=== PATIENT | male | born 1930 | race Caucasian/White ===

== ENCOUNTER 2019-07-10 13:55 | Inpatient (IN) | payer OTHER, MEDICARE ==
[~2019-07-10] VITALS: Ht 177.8 cm; Wt 90.7 kg
[2019-07-10 15:08] LABS: Base Excess Venous -5.1 mmol/L; Bicarbonate Venous 21.1 mmol/L (24.0-30.0); PCO2 Venous 28.2 mmHg (38-42); PO2 Venous 114 mmHg (38-42); pH Blood Venous 7.44 (7.34-7.37)
[2019-07-10 15:13] LABS: BASOPHILS ABSOLUTE AUTO 0.02 K/mm3 (0.00-0.23); BASOPHILS PERCENT AUTO 0 % (0-2); EOSINOPHILS ABSOLUTE AUTO 0.01 K/mm3 (0.00-0.68); EOSINOPHILS PERCENT AUTO 0 % (0-6); Hematocrit 34.4 % (37.0-53.0); Hemoglobin 11.4 g/dL (13.5-17.5); IMMATURE GRAN ABSOLUTE AUTO 0.06 K/mm3 (0.00-0.10); IMMATURE GRAN PERCENT AUTO 0 % (0-1); LYMPHOCYTES ABSOLUTE AUTO 0.82 K/mm3 (0.84-5.20); LYMPHOCYTES PERCENT AUTO 6 % (21-46); MONOCYTES ABSOLUTE AUTO 1.27 K/mm3 (0.16-1.47); MONOCYTES PERCENT AUTO 9 % (4-13); Mean Corpuscular HGB 28.9 pg (26.0-34.0); Mean Corpuscular HGB Conc 33.1 g/dL (31.5-36.5); Mean Corpuscular Volume 87 fL (80-100); Mean Platelet Volume 9.5 fL (9.1-12.4); NEUTROPHILS ABSOLUTE AUTO 12.73 K/mm3 (1.96-9.15); NEUTROPHILS PERCENT AUTO 85 % (41-73); Platelet Count 243 K/mm3 (150-400); RDW Coefficient Variation 15.4 % (11.7-14.2); RDW Standard Deviation 48.8 fL (35.1-46.3); Red Blood Cell Count 3.95 M/mm3 (4.30-5.90); White Blood Cell Count 14.91 K/mm3 (4.00-11.30)
[2019-07-10] MEDS ORDERED: Aspirin EC81 MG PO (15:23)
[2019-07-10 15:28] LABS: Alanine Aminotransfer (ALT/SGP 35 U/L (12-78); Albumin, Blood 3.8 g/dL (3.4-5.0); Albumin/Globulin Ratio 1.1 (0.8-1.8); Alk Phos 66 U/L (50-136); Anion Gap 11 mmol/L (6-16); Aspartate Aminotrans (AST/SGOT 50 U/L (12-37); Bilirubin, Total 0.7 mg/dL (0.1-1.0); Blood Urea Nitrogen 24 mg/dL (8-24); Bun/Creatinine Ratio 22.9 (12.0-20.0); CO2, Blood 20 mmol/L (21-32); Calcium, Blood 8.8 mg/dL (8.5-10.1); Chloride, Blood 97 mmol/L (98-108); Creatinine, Blood 1.05 mg/dL (0.60-1.20); Globulin, Blood 3.6 g/dL (2.2-4.0); Glomerular Filtration Rate >60 (60-); Glucose, Blood 160 mg/dL (70-99); Potassium, Blood 3.9 mmol/L (3.5-5.5); Sodium, Blood 128 mmol/L (136-145); Total Protein, Blood 7.4 g/dL (6.4-8.2)
[2019-07-10] MEDS ORDERED: ATOR40TA PO (17:08)
[2019-07-10] MEDS ORDERED: CLOPIDOGREL75 MG PO (17:10)
[2019-07-10] MEDS ORDERED: MAGNESIUM OXID500 MG PO (17:10)
[2019-07-10] MEDS ORDERED: GUAIFENESIN-DM 15 ML PO (17:11)
[2019-07-10] MEDS ORDERED: METO25ER PO (17:12)
[2019-07-10] MEDS ORDERED: NITR.4SL SL (17:12)
[2019-07-10] MEDS ORDERED: THEO400ER PO (17:13)
[2019-07-10 17:42] LABS: PCO2 Arterial 29.5 mmHg (35-45); PO2 Arterial 88.1 mmHg (80-100); pH Blood Arterial 7.41 (7.35-7.45)
--- NOTE | 2019-07-10 18:50 | NUR ---
PT NEW ADMIT FROM ED THIS SHIFT. HE IS ALERT, TALKING TO STAFF, DAUGHTER AT BEDSIDE. STATES PT IS CONFUSED, BED ALARM IN PLACE. TELE PLACED AFTER SHAVING, SINUS TACH LOW 100S NOTED. TACYPNEA AND WHEEZING NOTED. CALL LIGHT IN REACH
--- NOTE | 2019-07-10 19:00 | NUR ---
PT ADMITTED FROM ED. RECEIVED REPORT FROM JOANNE DWYER. ASSUMED CARE OF PT. PT SITTING UP IN BED, NO ACUTE S/S DISTRESS NOTED, VISIBLY CONFUSED. DAUGHTER AT BEDSIDE. CALL LIGHT AND POSSESSIONS IN REACH, BED ALARM ON, SIDE RAILS UP X3. WILL CONTINUE TO MONITOR.
[2019-07-10 19:07] LABS: Adenovirus Not Detected (NOT DETECT); Bordetella pertussis Not Detected (NOT DETECT); Chlamydophila pneumoniae Not Detected (NOT DETECT); Coronavirus 229E Not Detected (NOT DETECT); Coronavirus HKU1 Not Detected (NOT DETECT); Coronavirus NL63 Not Detected (NOT DETECT); Coronavirus OC43 Not Detected (NOT DETECT); Human Metapneumovirus Not Detected (NOT DETECT); Human Rhinovirus/Enterovirus Not Detected (NOT DETECT); Influenza A Not Detected (NOT DETECT); Influenza A/2009-H1 Not Detected (NOT DETECT); Influenza A/H1 Not Detected (NOT DETECT); Influenza A/H3 Not Detected (NOT DETECT); Influenza B Not Detected (NOT DETECT); Mycoplasma pneumoniae Not Detected (NOT DETECT); Parainfluenza Virus 1 Not Detected (NOT DETECT); Parainfluenza Virus 2 Not Detected (NOT DETECT); Parainfluenza Virus 3 Not Detected (NOT DETECT); Parainfluenza Virus 4 Not Detected (NOT DETECT); Respiratory Syncytial Virus Detected (NOT DETECT)
--- NOTE | 2019-07-10 19:49 | NUR ---
SPOKE TO INDIGO TATE REGARDING PT'S LACTIC ACID LEVEL. ORDERS RECEIVED.
[2019-07-10 22:16] LABS: Creatine Kinase MB 30.5 ng/mL (0.0-3.6)
[2019-07-10 22:18] LABS: Troponin I 1.08 ng/mL (0.000-0.040)
[2019-07-10 22:19] LABS: Creatine Kinase MB Index 1.8 (0.0-4.0)
--- NOTE | 2019-07-10 22:40 | NUR ---
SPOKE TO INDIGO TATE REGARDING PT'S INCREASING LACTIC ACID AND ELEVATED TROPONIN. IN TO SEE PT AT THIS TIME. NO NEW ORDERS RECEIVED.
[2019-07-11 03:41] LABS: BASOPHILS PERCENT AUTO 0 % (0-2); EOSINOPHILS PERCENT AUTO 0 % (0-6); Hematocrit 30.3 % (37.0-53.0); Hemoglobin 10.2 g/dL (13.5-17.5); IMMATURE GRAN ABSOLUTE AUTO 0.06 K/mm3 (0.00-0.10); IMMATURE GRAN PERCENT AUTO 1 % (0-1); LYMPHOCYTES ABSOLUTE AUTO 0.41 K/mm3 (0.84-5.20); LYMPHOCYTES PERCENT AUTO 4 % (21-46); MONOCYTES ABSOLUTE AUTO 0.24 K/mm3 (0.16-1.47); MONOCYTES PERCENT AUTO 2 % (4-13); Mean Corpuscular HGB 29.7 pg (26.0-34.0); Mean Corpuscular HGB Conc 33.7 g/dL (31.5-36.5); Mean Corpuscular Volume 88 fL (80-100); Mean Platelet Volume 8.9 fL (9.1-12.4); NEUTROPHILS PERCENT AUTO 93 % (41-73); Platelet Count 168 K/mm3 (150-400); RDW Coefficient Variation 15.8 % (11.7-14.2); RDW Standard Deviation 50.4 fL (35.1-46.3); Red Blood Cell Count 3.44 M/mm3 (4.30-5.90); White Blood Cell Count 10.11 K/mm3 (4.00-11.30)
[2019-07-11 04:05] LABS: Alanine Aminotransfer (ALT/SGP 34 U/L (12-78); Albumin, Blood 3.3 g/dL (3.4-5.0); Alk Phos 60 U/L (50-136); Anion Gap 9 mmol/L (6-16); Aspartate Aminotrans (AST/SGOT 54 U/L (12-37); Bilirubin, Total 0.4 mg/dL (0.1-1.0); Blood Urea Nitrogen 23 mg/dL (8-24); Bun/Creatinine Ratio 20.5 (12.0-20.0); CO2, Blood 21 mmol/L (21-32); Calcium, Blood 8.2 mg/dL (8.5-10.1); Chloride, Blood 101 mmol/L (98-108); Creatinine, Blood 1.12 mg/dL (0.60-1.20); Globulin, Blood 3.3 g/dL (2.2-4.0); Glomerular Filtration Rate >60 (60-); Glucose, Blood 215 mg/dL (70-99); Potassium, Blood 4.4 mmol/L (3.5-5.5); Sodium, Blood 131 mmol/L (136-145); Total Protein, Blood 6.6 g/dL (6.4-8.2)
--- NOTE | 2019-07-11 05:03 | NUR ---
SPOKE TO DR. WREN REGARDING PT'S ELEVATED TROPONIN. STATED HE WILL REVIEW CHART AND ENTER ORDERS NEEDED. NO ORDERS RECEIVED AT THIS TIME.
--- NOTE | 2019-07-11 07:13 | NUR ---
SHIFT SUMMARY: PT RESTING IN BED COMFORTABLY, IN NO ACUTE DISTRESS. WAS MONITORED EVERY 1-2 HOURS WITH NEEDS MET, TOLERATING CPAP WELL AT THIS TIME. O2 SATS AND BP'S STABLE T/O THE NIGHT. UPDATED DAUGHTER THIS MORNING REGARDING PT'S CONDITION, CONCERNS AND QUESTIONS WERE ADDRESSED. REMAINS AT THE BEDSIDE AT THIS TIME. REPORTED OFF TO JOANNE DWYER.
--- NOTE | 2019-07-11 07:14 | NUR ---
ASSUMED CARE: PT RESTING IN BED WITH CPAP IN PLACE. NIGHT RN AND LOAD MANAGER AT BEDSIDE CHANGING ATTENDS. DAUGHTER TO BRING IN COPY OF ADVANCED DIRECTIVE.
--- NOTE | 2019-07-11 19:15 | NUR ---
RECEIVED REPORT FROM JOANNE DWYER. ASSUMED CARE OF PT. SITTING UP IN BED COMFORTABLY AT THIS TIME, IN NO ACUTE DISTRESS. DAUGHTER AT THE BEDSIDE. DENIES ANY NEEDS AT THIS TIME. CALL LIGHT AND POSSESSIONS IN REACH, BED IN LOW AND LOCKED POSITION, BED ALARM ACTIVATED. WILL CONTINUE TO MONITOR.
--- NOTE | 2019-07-11 19:27 | NUR ---
SHIFT SUMMARY: PT RESTING IN BED, CONFUSED AT TIMES AND HARD OF HEARING. DAUGHTER AT BEDSIDE. PLAN IS FOR PCU FOR NEXT FEW DAYS TO MONITOR DUE TO WHEEZING AND TACHYPNEA. SINUS TACH IN LOW 100S. NO FURTHER NEEDS OR CONCERNS.
--- NOTE | 2019-07-11 21:00 | NUR ---
PT STANDING AT THE BEDSIDE, VISIBLY AGITATED, ALARM SOUNDING. RN AT THE BEDSIDE, REDIRECTED PT BACK TO BED WITH ASSISTANCE OF 3. REPOSITIONED FOR COMFORT, CALL LIGHT AND POSSESSIONS IN REACH, BED ALARM ACTIVATED. WILL CONTINUE TO MONITOR.
[2019-07-12 04:45] LABS: BASOPHILS ABSOLUTE AUTO 0.01 K/mm3 (0.00-0.23); BASOPHILS PERCENT AUTO 0 % (0-2); EOSINOPHILS PERCENT AUTO 0 % (0-6); Hematocrit 31.9 % (37.0-53.0); Hemoglobin 10.4 g/dL (13.5-17.5); IMMATURE GRAN ABSOLUTE AUTO 0.12 K/mm3 (0.00-0.10); IMMATURE GRAN PERCENT AUTO 1 % (0-1); LYMPHOCYTES ABSOLUTE AUTO 0.43 K/mm3 (0.84-5.20); LYMPHOCYTES PERCENT AUTO 3 % (21-46); MONOCYTES ABSOLUTE AUTO 0.55 K/mm3 (0.16-1.47); MONOCYTES PERCENT AUTO 4 % (4-13); Mean Corpuscular HGB 29.1 pg (26.0-34.0); Mean Corpuscular HGB Conc 32.6 g/dL (31.5-36.5); Mean Corpuscular Volume 89 fL (80-100); Mean Platelet Volume 9.1 fL (9.1-12.4); NEUTROPHILS ABSOLUTE AUTO 12.55 K/mm3 (1.96-9.15); NEUTROPHILS PERCENT AUTO 92 % (41-73); Platelet Count 222 K/mm3 (150-400); RDW Coefficient Variation 16.2 % (11.7-14.2); RDW Standard Deviation 53.6 fL (35.1-46.3); Red Blood Cell Count 3.57 M/mm3 (4.30-5.90); White Blood Cell Count 13.66 K/mm3 (4.00-11.30)
[2019-07-12 04:59] LABS: Bun/Creatinine Ratio 24.2 (12.0-20.0); Calcium, Blood 8.7 mg/dL (8.5-10.1); Creatinine, Blood 1.24 mg/dL (0.60-1.20); Potassium, Blood 4.7 mmol/L (3.5-5.5)
--- NOTE | 2019-07-12 07:00 | NUR ---
recvd bedside report from previous shift JOANNE Jimenez/Joseph. pt sitting up in chair with tab alarm on, appears constantly fidgety (moving legs, turning pages on book, playing with crayons, activity apron), daughter in room with pt. Pt has not slept for operation shift supervisor, has been OOB in room, moves quickly.
--- NOTE | 2019-07-12 07:15 | NUR ---
PT SITTING IN RECLINER, IN NO ACUTE DISTRESS. WAS MONITORED EVERY 1-2 HOURS WITH NEEDS MET, DENIES ANY NEEDS AT THIS TIME. CALL LIGHT AND POSSESSIONS IN REACH, BED IN LOW AND LOCKED POSITION WITH BED ALARM ACTIVATED, DAUGHTER AT THE BEDSIDE.
--- NOTE | 2019-07-12 07:20 | NUR ---
PT SITTING IN RECLINER, IN NO ACUTE DISTRESS. WAS MONITORED EVERY 1-2 HOURS WITH NEEDS MET. DENIES ANY NEEDS AT THIS TIME. TAB ALARM IN PLACE, CHAIR LOCKED. DAUGHTER AT THE BEDSIDE, UPDATED ON PT CONDITION T/O NIGHT, QUESTIONS AND CONCERNS ADDRESSED. PT CALL LIGHT AND POSSESSIONS IN REACH.
--- NOTE | 2019-07-12 08:10 | NUR ---
returned call to pt's son, provided pt's son with update of status
--- NOTE | 2019-07-12 18:46 | NUR ---
PT HAS GRABBED AT DAUGHTER TO THE POINT SHE NEEDED TO CALL FOR HELP. PT GRABBING AT NURSING STAFF HANDS, SPITTING OUT MEDICATIONS/FOOD, CONTINUAL ATTEMPTS TO GET OOB. REPORTED TO HOSPITALIST, RECEIVED ORDERS FOR MEDICATIONS PER MAR, SOFT VEST RESTRAINT, REQUIRED 2-3 STAFF MEMBERS TO PUT VEST ON. VEST CURRENTLY IN PLACE
--- NOTE | 2019-07-12 18:47 | NUR ---
SHIFT SUMMARY: VSS, NO ACUTE CHANGES, PT'S LUNGS COURSE, NON-PRODUCTIVE COUGH CONTINUES. NO SOB WITNESSED, SPO2 >90% ON RA. PT RECEIVED RESPIRATORY TREATMENTS X 3 THIS SHIFT. MEDICATED PER JUL WITH SOME LESSINGING OF COUGH. PT WITH MULTIPLE INCONTINENT BM AND VOIDS THIS SHIFT PT TOLERATED PO INTAKE WITH NO N/V. PT INCREASINGLY AGITATED/ANXIOUS DURING AFTERNOON HOURS, MEDICATED PER JUL WITH ONLY WORSENING OF SYMPTOMS INCLUDING AGITATION AND ATTEMPTS TO GET OOB REQUIRING 2 NURSING STAFF. ATTEMPS AT REORIENTATION UNSUCCESSFUL TIME PASSES. PT DISPLAYS VISUAL AND AUDITORY HALLUCINATIONS. AT 1700, PT'S DAUGHTER YELLED OUT CALLED FOR ASSISTANCE. BUDGET CONTROLLER AND THIS RN WITNESSED PT GRABBING AT HIS DAUGHTER FORCEFULLY. PT REQUIRED 2 NURSING STAFF TO GET BACK TO BED, CONTINUALLY ATTEMPTING TO LEAVE. SPOKE WITH HOSPITALIST FOR ORDERS, ADMINISTERED PER JUL. BRIGIDA VEST IN PLACE
--- NOTE | 2019-07-12 19:26 | NUR ---
shift summary addendum: while composing shift summary on this pt, pt is able to struggle out of leonora vest, pulls at all items within reach, two nursing staff to retie and reposition pt who continues to display visual hallucinations, appears to be exhausted yet unable to sleep
--- NOTE | 2019-07-12 20:06 | NUR ---
Bedside report from Rachelle RUBIO. Pt in [facility]. Extremely cofused d/t adv alz. speech is mumbled and incoherent. VSS. Has not slept in 2 days. Spits out meds. Benedryl IV given as OT order. Assessemnt as noted. Transfer orders obtained to [facility] room 353 - report called to Ant RUBIO.
--- NOTE | 2019-07-12 21:10 | NUR ---
88 YR OLD MALE TRANSFERRED TO FLOOR FROM THE PCU WITH DX ACUTE COPD. CURRENTLY IN BRIGIDA RESTRAINT FOR SAFETY HE IS VERY UNSTEADY ON HIS FEET AND CONTINUES TO TRY TO GET OUT OF BED. SAID RESTRAINT IS UP AT 1845 TOMORROW PM. HOB ELEVATED FOR BREATHING. ON DROPLET PRECAUTIONS FOR RSV. RECEIVING IV ANTIBIOTICS SEE MAR FOR DETAILS. WAS INCONT OF FECES, CHANGED. REMAINS AGITATED. CALL LIGHT IN REACH. WILL CONT TO MONITOR.
--- NOTE | 2019-07-13 03:01 | NUR ---
PT REMAINS IN VEST BRIGIDA FOR SAFETY TO SELF - VERY UNSTEADY GAIT AND REFUSAL TO STAY IN BED. IV ANTIBIOTICS INFUSING PER JUL. HYGEINE AND CIRCULATION ASSESSMENTS CONTINUE. CARDIAC CONSULT CALLED IN - PER MD ORDERS. MED TELE SINUS RHYTHM IN THE 70'S. DROPLET PRECAUTIONS CONTINUE. CALL LIGHT IN REACH.
[2019-07-13 05:19] LABS: BASOPHILS ABSOLUTE AUTO 0.01 K/mm3 (0.00-0.23); BASOPHILS PERCENT AUTO 0 % (0-2); EOSINOPHILS PERCENT AUTO 0 % (0-6); Hematocrit 29.7 % (37.0-53.0); Hemoglobin 9.7 g/dL (13.5-17.5); IMMATURE GRAN ABSOLUTE AUTO 0.19 K/mm3 (0.00-0.10); IMMATURE GRAN PERCENT AUTO 2 % (0-1); LYMPHOCYTES ABSOLUTE AUTO 0.46 K/mm3 (0.84-5.20); LYMPHOCYTES PERCENT AUTO 4 % (21-46); MONOCYTES ABSOLUTE AUTO 0.52 K/mm3 (0.16-1.47); MONOCYTES PERCENT AUTO 5 % (4-13); Mean Corpuscular HGB 29.5 pg (26.0-34.0); Mean Corpuscular HGB Conc 32.7 g/dL (31.5-36.5); Mean Corpuscular Volume 90 fL (80-100); Mean Platelet Volume 9.3 fL (9.1-12.4); NEUTROPHILS ABSOLUTE AUTO 9.78 K/mm3 (1.96-9.15); NEUTROPHILS PERCENT AUTO 89 % (41-73); Platelet Count 204 K/mm3 (150-400); RDW Coefficient Variation 16.2 % (11.7-14.2); RDW Standard Deviation 53.4 fL (35.1-46.3); Red Blood Cell Count 3.29 M/mm3 (4.30-5.90); White Blood Cell Count 10.96 K/mm3 (4.00-11.30)
[2019-07-13 05:37] LABS: Albumin, Blood 3.1 g/dL (3.4-5.0); Anion Gap 9 mmol/L (6-16); Blood Urea Nitrogen 40 mg/dL (8-24); Bun/Creatinine Ratio 33.1 (12.0-20.0); CO2, Blood 22 mmol/L (21-32); Calcium, Blood 8.4 mg/dL (8.5-10.1); Chloride, Blood 106 mmol/L (98-108); Creatinine, Blood 1.21 mg/dL (0.60-1.20); Glomerular Filtration Rate >60 (60-); Glucose, Blood 213 mg/dL (70-99); Phosphorus, Blood 3.2 mg/dL (2.5-4.9); Potassium, Blood 4.4 mmol/L (3.5-5.5); Sodium, Blood 137 mmol/L (136-145)
--- NOTE | 2019-07-13 17:16 | NUR ---
DARK BLACK STOOL NOTIFIED DR. EVANS RE DARK BLACK SMALL STOOL. ORDERS TO HOLD HEPARIN, COLLECT OCCULT STOOL SAMPLE, AND REPEAT H+H. IF REPEAT HGB IS BELOW 9.5, HOLD ASPIRIN.
--- NOTE | 2019-07-13 17:27 | NUR ---
Wrist Restraints Pt was able to get out of his leonora, pulled out his IV, and get out of bed to close the door. COMMERCIAL INTELLIGENCE MANAGER immediately ran in for assistance and found patient walking holding onto furniture having an unsteady gait. Patient also removed tele and patches off chest. Moderately difficult to redirect. This RN received orders from Dr. Guidry for wrist restraints for patient safety. Pt does not call appropriately, is confused, and continues to be a safety issue. Bed in lowest position, call light near, belongings at bedside.
[2019-07-13 17:56] LABS: Hematocrit 29.9 % (37.0-53.0); Hemoglobin 9.8 g/dL (13.5-17.5)
--- NOTE | 2019-07-13 18:29 | NUR ---
Shift Summary A/O to self, recognizes family. This is my first day working with this patient. Pt has slurred speech at times, but is able to have clarity in speech also. Disoriented, impulsive, does not follow directions very well, continues to remove telemetry and attempts to get out of restraints. Patient has been incontinent, stool found to be black. Heparin to be held, aspirin is okay to give per Dr. Guidry d/t repeat Hgb >9.8. Lung sounds are wheezy, pt seems dyspneic when restless and on exertion. Denies pain. No other acute concerns. Family has been at bedside for most of the day. Will continue to monitor.
--- NOTE | 2019-07-14 00:34 | NUR ---
PT REMANS IN BILATERAL WRIST AND BRIGIDA VEST RESTRAINTS. REMAINS AGITATED EVEN AFTER MEDS GIVEN - INCLUDING PRNS FOR AGITATION. PULLED OUT IV, ANOTHER ONE PLACED IN LEFT FOREARM. IVF AND ANTIBIOTICS INFUSING. NON RECEPTIVE TO REDIRECTION. LIGHTS DOWN, CALM ENVIRONMENT ENCOURAGED. CALL LIGHT IN REACH. DROPLET PRECAUTIONS CONTINUE.
--- NOTE | 2019-07-14 04:07 | NUR ---
PT AGITATION CONTINUES. REMAINS IN VEST AND BILATERAL WRIST RESTRAINTS HE REFUSES TO ALLOW IV AND TELE. CONTINUES TO PULL AT LINES, PULLED OUT IV, IV SITE REPLACED. NOTIFIED OF KARLA MCGOVERN NOT WORKING, LIUDMILA SRINIVASAN'Will AND ZINA ORDERED - SEE JUL FOR DETAILS. HALDON ADMINISTERED. CURRENTLY YELLING AT THE WALL. IVF INFUSING ORDERED. CALL LIGHT IN REACH. DROPLET PRECAUTIONS CONTINUE.
[2019-07-14 05:20] LABS: Hematocrit 28.9 % (37.0-53.0); Hemoglobin 9.4 g/dL (13.5-17.5)
--- NOTE | 2019-07-14 08:21 | NUR ---
VÍCTOR PT WAS ABLE TO GET OUT OF BOTH TYPES OF RESTRAINTS THIS MORNING X 2, NOTIFIED DR. EVANS. VÍCTOR ORDERED (SEE EMAR).
[2019-07-14 10:09] LABS: Hematocrit 27.6 % (37.0-53.0)
[2019-07-14 14:22] LABS: Stool Occult Blood Guaiac 1 Pos (Neg)
--- NOTE | 2019-07-14 18:30 | NUR ---
Shift Summary A/O to self and family. Pt was agitated and pulling at tele and lines this morning, medicated for agitation x 1 with good results. Pt slept and was calm for most of the day. Towards the end, pt started to become agitated and pulled IV out attempting to get out of vest restraints. Difficult to redirect. Restraint order renewed by Dr. Guidry. Friend will stay at bedside t/o the night to help redirect patient. Call light near, camera on.
--- NOTE | 2019-07-15 04:46 | NUR ---
AWAKE AT FREQUENT INTERVALS THIS SHIFT, USUALLY WITH REQUESTS TO GO TO THE BATHROOM, BUT MOST OF SUCH TIMES WERE THAT HE HAD ALREADY GONE AND WAS INCONTENENT OF FECES (BLACK, TARRY) AND URINE. CHANGED WHEN INCONT AND CLEANED. NOTE SOME IRRITATION OF DANIELLE AREA AND LOTION CREAM APPLIED. VOICED FELT BETTER POST APPLICATION. IVF AT [facility] ANTIBIOTICS -SEE MAR FOR DETAILS. CALL LIGHT IN REACH. DROPLET PRECAUTIONS MAINTAINED.
[2019-07-15 07:56] LABS: Hematocrit 29.6 % (37.0-53.0); Hemoglobin 9.5 g/dL (13.5-17.5)
[2019-07-15 18:21] LABS: Hematocrit 29.4 % (37.0-53.0); Hemoglobin 9.6 g/dL (13.5-17.5)
--- NOTE | 2019-07-16 00:36 | NUR ---
07/15/19 2230 PT BECOMING COMBATIVE WHEN TRYING TO CLEAN STOOL AND REPOSITION. SECURITY CALL TO ASSIST WITH CARE. SEE MAR FOR MED GIVEN.
[2019-07-16 04:24] LABS: Hemoglobin 9.1 g/dL (13.5-17.5)
--- NOTE | 2019-07-16 06:57 | NUR ---
07/16/19 0620 PT HAD SEVERAL DARK BM'S TONIGHT. VITALS STABLE. FIELD NURSE CASE MANAGER AT BEDSIDE ALL SHIFT AND REASSURES PT HE HAS BEEN CONFUSED WITH HALLUCINATIONS. CALIXTO. WRIST AND BRIGIDA VEST RESTRAINTS ON ALL SHIFT. PT PULLS AT LINEN AND TUBES. HIGH FALL RISK.
[2019-07-16 08:31] LABS: Hematocrit 29.2 % (37.0-53.0); Hemoglobin 9.3 g/dL (13.5-17.5)
--- NOTE | 2019-07-16 09:45 | NUR ---
PT AGITATED. PT INCREASED IN AGITATION THIS AM. REFUSED BREIF CHANGE THIS AM DUE TO AGITATION. MEDICATED WITH IV HALDOL. PT CALMED A LITTLE. QUICK BED BATH AND BREIF CHANGE COMPLETED. WILL CONTINUE TO MONITOR.
--- NOTE | 2019-07-16 13:29 | NUR ---
Patient and family gave this doctor of nursing practice permission to help take care of him 07/16/2019.
[2019-07-16 16:34] LABS: Hematocrit 29.5 % (37.0-53.0); Hemoglobin 9.7 g/dL (13.5-17.5)
--- NOTE | 2019-07-16 18:25 | NUR ---
SHIFT SUMMARY PT CONTINUES TO HAVE BLACK TARRY STOOLS. PT SEEN BY GI AND SCOPE WILL BE HELP OFF IF POSSIBLE. WILL CONITNUE TO MONITOR H&H. PT MORE CONFUSED & AGITATED TODAY. RESTRAINTS IN PLACE. NO OTHER CHANGES IN ASSESSMENT AT THIS TIME. VSS. WILL CONTINUE TO MONITOR UNTIL TURNOVER IS COMPLETE.
[2019-07-16 20:05] LABS: Hematocrit 27.1 % (37.0-53.0); Hemoglobin 8.8 g/dL (13.5-17.5)
--- NOTE | 2019-07-17 01:46 | NUR ---
07/17/19 0015 Pt very restless and swinging legs over the siderails. VERY CONFUSED AND TORE OFF PULSE FINGER PROBE TWICE. SEE MAR FOR MED GIVEN.
--- NOTE | 2019-07-17 06:42 | NUR ---
07/17/19 0600 PT AWAKENED FOR AM VITALS AND REPOSITIONING. INCONTINENT OF URINE IN BRIEF AND PER-CARE GIVEN. PT DROWZY AND FELL BACK TO SLEEP. RESTRAINTS REMAINED ON ALL SHIFT FOR SAFETY AND MAINTAINING IV AND RESP. PULSE OXIMETER. TECHNOLOGY DIRECTOR IN ROOM ALL SHIFT.
--- NOTE | 2019-07-17 07:06 | NUR ---
I was in and out of 353 many times throughout the night. I was so busy I lost count of the numerous times. I know we changed his brief 4 times, he pulled off his O2 sensor, he broke his O2 sensor, he was trying to crawl out of bed, and I was in there another time just to check in. Not only was I in the room all of the above mentioned times, the RN was in and out various times as well. Saleem had trouble sleeping and was up most of the night. We woke him for vitals this morning and changed his brief and he went right back to sleep.
--- NOTE | 2019-07-17 14:06 | NUR ---
INITIAL PAL CARE CONSULT: STATUS CHANGED TO COMFORT CARE PER FAMILY REQUEST Received pal care consult request from and pt's RN. EMR reviewed and met with pt's wendy, jada, fam friend outside of room. They verbalize understanding of their conversation with re: multiple comorbidities and options for care, including EOL care. Reviewed current code status of DNI with them and request for no blood products. Wendy has met with GI consult and decided against further w/u for melana. She requests full DNR status and wants pt to be on comfort care. WE discussed changes to anticipate with orders, care and s/s as pt progresses with EOL. Pt assessed briefly. He is asleep in room, mouth breathing on RA currently and maintaining sats currently >90%. I did not wake or disturb him because he has had periods of extreme agitation. He is in a leonora vest, supine in bed with hob elevated. Pt using attends for elimination. Family friend, who stayed overnight with pt and who helped @ home with pt, described hours of agitation before being medicated with IM seroquel and "settling down" enough that they could both sleep for a short while last night. Family wanting to know "time frame" for pt's demise. Pt is currently well hydrated and nutritioned, not in respiratory distress on RA. Family informed by both his RN and me that we could not predict exact prognosis/timeframe and I reassured them at this time he does not appear to be actively dying. Unforseen but possible changes in status discussed with family. Encouraged family memebers, who wanted to visit should come while pt has wakeful periods. Discussed d/c planning later in the week, either home with hospice or placement for EOL care. Pt is a . All of the above discussed with family and CM. Report to RN and DR after my visit. FAmily is clear that they want pt on comfort care at this time. They do not feel they can care for him at home without 24 hour care provided. Discussed role of hospice and frequency of visits/level of care. VO obtained for comfort care and orders entered. Reviewed new orders with pt's RN also.
--- NOTE | 2019-07-17 18:14 | NUR ---
SHIFT SUMMARY PT ALERT ONLY TO SELF THIS AM. DAUGHTER IN ROOM THROUGHOUT THIS SHIFT. PALLIATIVE CARE CONSULTED TODAY. PT MOVED TO COMFORT CARE. RESTRAINTS REMOVED PER PROTOCOL AND DUE TO LINES NO LONGER BEING AN ISSUE AFTER MOVE TO COMFORT CARE. MULTIPLE FAMILY MEMBERS HAVE BEEN IN THE ROOM THIS AFTERNOON. PT'S MENTATION HAS IMPROVED WITH MORE ACTIVITY IN THE ROOM. PT UP TO BEDSIDE COMODE 2X THIS SHIFT WITH 2 PERSON ASSIST. PT CURRENTLY RESTING IN BED WITH FAMILY AT BEDSIDE.
--- NOTE | 2019-07-18 04:31 | NUR ---
SHIFT SUMMARY PT HAS HAD NO ACUTE CHANGES THIS SHIFT, NO C/O ANY KIND, PT HAS REPOS SELF T/O SHIFT, DID ATTEMPT TO FLOAT HIPS AND HEELS FROM SIDE TO SIDE, PT DENIED ANY PAIN/DISCOMFORT THIS SHIFT, SLEPT T/O NIGHT & APPEARS TO BE SLEEPING COMFORTABLY AT THIS TIME W/FRIEND SLEEPING AT BEDSIDE, CALL LIGHT IN REACH, WILL CONT TO MONITOR UNTIL REPORT GIVEN TO DAY RN.
--- NOTE | 2019-07-18 12:50 | NUR ---
DISCHARGE NOTE PT DISCHARGED TO [facility]. PT TRANSPORTED ON A GURNEY VIA AMBULANCE. PT ALERT UPON DISCHARGE, ORIENTED TO SELF, SITUATION, AND FAMILY. PT'S DAUGHTER HAS BEEN IN THE ROOM WITH PT THROUGHOUT THIS SHIFT. PT'S IV REMOVED PRIOR TO DISCHARGE. PT'S MENTATION GREATLY IMPROVED OVER SHIFT YESTERDAY.
[2019-07-18] MEDS ORDERED: ACET120S PR (13:07)
[2019-07-18] MEDS ORDERED: Atropine Su0.1 MG/ML SL (13:10)
[2019-07-18] MEDS ORDERED: Haldol5 MG/1 ML PO (13:12)
[2019-07-18] MEDS ORDERED: Ativan1 MG PO (13:13)
[2019-07-18] MEDS ORDERED: Seroquel Xr50 MG PO (13:13)
[2019-07-18] MEDS ORDERED: Transderm-Scop1 EACH TD (13:14)
[2019-07-18] MEDS ORDERED: MORP20L SL (13:17)
== END 2019-07-18 12:44 | disposition hospice, inpatient (51) | DRG 177 ==
LOC: ER 13:55 → MEDS 18:20 → PCU 18:20 → MEDS 07-12 20:37
PROVIDERS: Emergency Medicine; Internal Medicine; ADMIT Internal Medicine
DX: J69.0 Pneumonitis due to inhalation of food and vomit (principal); J96.01 Acute respiratory failure with hypoxia; I21.A1 Myocardial infarction type 2; G92 Toxic encephalopathy; J44.1 Chronic obstructive pulmonary disease with (acute) exacerbation; J21.0 Acute bronchiolitis due to respiratory syncytial virus; I13.0 Hypertensive heart and chronic kidney disease with heart failure and stage 1 through stage 4 chronic kidney disease, or unspecified chronic kidney disease; I42.1 Obstructive hypertrophic cardiomyopathy; F03.91 Unspecified dementia, unspecified severity, with behavioral disturbance; F05 Delirium due to known physiological condition; N17.9 Acute kidney failure, unspecified; K92.1 Melena; J45.901 Unspecified asthma with (acute) exacerbation; Z51.5 Encounter for palliative care; E11.22 Type 2 diabetes mellitus with diabetic chronic kidney disease; N18.3 Chronic kidney disease, stage 3 (moderate); I50.9 Heart failure, unspecified; Z95.5 Presence of coronary angioplasty implant and graft; I25.10 Atherosclerotic heart disease of native coronary artery without angina pectoris; J12.1 Respiratory syncytial virus pneumonia; B97.4 Respiratory syncytial virus as the cause of diseases classified elsewhere; Z78.1 Physical restraint status; Z66 Do not resuscitate; E78.5 Hyperlipidemia, unspecified; E11.65 Type 2 diabetes mellitus with hyperglycemia; R13.10 Dysphagia, unspecified; D64.9 Anemia, unspecified
CPT/HCPCS: 0099U; 36415; 36600; 71045; 71260; 80048; 80053; 80069; 82270; 82550; 82553; 82803; 82947; 83036; 83605; 83880; 84484; 85014; 85018; 85025; 85379; 87040; 92526; 92610; 93005; 93010; 93306; 94640; 94644; 94660; 94760; 94762; 96365-59; 96366; 96375-59; 97116; 97162; 97530; 99285-25; A9270-GY; C9113; J0456; J0696; J1200; J1630; J1644; J2916; J2930; J3475; J7030; J7040; J7050; J7512; Q9967